=== PATIENT | male | born 1935 | race Caucasian/White ===

== ENCOUNTER 2016-11-04 19:42 | Emergency (ER) | payer MEDICARE, OTHER ==
--- NOTE | 2016-11-04 19:59 | ED.PDOC ---
History of Present Illness - General Stated Complaint: LEFT ARM NUMBNESS Time Seen by Provider: 11/04/16 19:49 Source: patient, RN notes reviewed, Vital Signs reviewed, family Exam Limitations: no limitations - History of Present Illness Initial Comments: Patient reports about 45 minutes to 1 hour ago he developed L arm numbness and weakness. No other symptoms. He had a similar episode last night that resolved after taking 2 aspirin. He did take an additional 2 aspirin today. Denies, OLIVA, visual changes, chest pain, SOB, nausea or lower extremity weakness. No similar episodes in the past. He does get bilateral arm numbness if he tilts his head back too far due to a neck issue but reports this numbness is different. Timing/Duration: 1 hour Severity: moderate Improving Factors: nothing Worsening Factors: nothing Associated Symptoms: denies symptoms Allergies/Adverse Reactions: Allergies NO KNOWN ALLERGY Allergy (Unverified 08/30/13 09:09) Home Medications: Ambulatory Orders Aspirin [Aspirin 81] 81 mg PO 08/30/13 Fluticasone/Salmeterol 250/50 [Advair Diskus] 08/30/13 Rosuvastatin Calcium [Crestor] 10 mg PO 08/30/13 Albuterol Inhaler [Ventolin Hfa Inhaler] 1 puff INH 11/04/16 Calcium 600 mg PO 11/04/16 Finasteride [Proscar] 5 mg PO 11/04/16 Magnesium [Magnesium 250 mg] 1 tab PO 11/04/16 Multiple Vitamins W/ Minerals [Ocuvite Preservision] 1 tab PO 11/04/16 Olmesartan Medoxomil [Benicar] 40 mg PO 11/04/16 Omeprazole [PriLOSEC Cap] 20 mg PO 11/04/16 amLODIPine BESYLATE [Norvasc] 10 mg PO 11/04/16 Review of Systems - Review of Systems Constitutional: States: no symptoms reported. Denies: malaise, weakness EENTM: States: no symptoms reported. Denies: blurred vision, double vision Respiratory: States: no symptoms reported. Denies: cough, short of breath Cardiology: States: no symptoms reported. Denies: chest pain Gastrointestinal/Abdominal: States: no symptoms reported. Denies: nausea, vomiting Genitourinary: States: no symptoms reported Musculoskeletal: States: no symptoms reported. Denies: back pain, joint pain, muscle pain, muscle stiffness, neck pain Skin: States: no symptoms reported Neurological: States: numbness, paresthesia, tingling, weakness. Denies: headache, pre-existing deficit, seizure, tremors Endocrine: States: no symptoms reported Hematologic/Lymphatic: States: no symptoms reported. Denies: blood clots, easy bleeding, easy bruising All other Systems: No Change from Baseline Past Medical History (General) - Patient Medical History Hx Seizures: No Hx Stroke: No Hx Dementia: No Hx Asthma: No Hx of COPD: Yes Hx Cardiac Disorders: Yes Hx Congestive Heart Failure: Yes Hx Pacemaker: No Hx Hypertension: Yes Hx Thyroid Disease: No Hx Diabetes: No Hx Gastroesophageal Reflux: Yes Hx Renal Disease: No Hx Cancer: No Hx of HIV: No Hx Hepatitis C: No Hx MRSA: No - Vaccination History Hx Tetanus, Diphtheria Vaccination: No Hx Influenza Vaccination: No Hx Pneumococcal Vaccination: No - Social History Hx Tobacco Use: No Hx Chewing Tobacco Use: No Hx Alcohol Use: No Hx Substance Use: No Hx Substance Use Treatment: No Hx Depression: No Hx Physical Abuse: No Hx Emotional Abuse: No Hx Suspected Abuse: No - Female History Patient : No Family Medical History - Family History Mother Family History: Unknown Physical Exam - Physical Exam General Appearance: Alert, Comfortable, No apparent distress, Well Developed, Well Groomed, Well Hydrated, Well Nourished Eye Exam: bilateral normal ENT Exam: hearing grossly normal, pharynx normal Neck: non-tender, full range of motion, supple, normal inspection Respiratory: chest non-tender, lungs clear, normal breath sounds, no respiratory distress, no accessory muscle use Cardiovascular/Chest: normal peripheral pulses, regular rate, rhythm, no edema, no gallop, no JVD, no murmur Peripheral Pulses: radial,right: 2+, radial,left: 0 - Patient reports there is no radial pulse due to prior surgery, dorsalis pedis,right: 2+, dorsalis pedis, left: 2+ Gastrointestinal/Abdominal: normal bowel sounds, non tender, soft, no organomegaly, no pulsatile mass Extremities Exam: non-tender, normal range of motion, no evidence of injury 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 Will repeat cardiac enzymes in 2 hours. If normal again will d/c home. Discussed possibility of TIA with patient and family. Patient is now symptom free. His exam was normal. 11/04/16 23:17 Second set of cardiac enzymes are normal. Most likely a TIA - Results/Orders Results/Orders: Laboratory Tests 11/04/16 11/04/16 19:49 22:50 WBC 6.5 RBC 5.57 Hgb 14.9 Hct 45.1 MCV 81.0 MCH 26.8 L MCHC 33.1 RDW 13.6 Plt Count 170 MPV 8.6 Absolute Neuts (auto) 3.40 Absolute Lymphs (auto) 2.20 Absolute Monos (auto) 0.60 Absolute Eos (auto) 0.20 Absolute Basos (auto) 0.00 Neutrophils % 52.5 Lymphocytes % 33.6 Monocytes % 9.9 H Eosinophils % 3.3 Basophils % 0.7 Sodium 139 Potassium 4.0 Chloride 105 Carbon Dioxide 28 Anion Gap 10.0 L BUN 34 H Creatinine 1.47 H BUN/Creatinine Ratio 23.1 H Random Glucose 109 H Serum Osmolality 285.7 Calcium 9.1 Total Bilirubin 0.3 AST 18 ALT 15 Alkaline Phosphatase 87 Creatine Kinase 84 77 CK-MB (CK-2) 3.1 2.7 CK-MB (CK-2) % Not Reportable Not Reportable Troponin I < 0.02 < 0.02 Serum Total Protein 6.2 L Albumin 3.7 Globulin 2.5 Albumin/Globulin Ratio 1.5 - EKG/XRAY/CT CT Ordered: Yes CT Interpretation Call Back: Yes - No acute stroke, 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 Departure - Departure Clinical Impression: Transient ischaemic attack (TIA), and cerebral infarction without residual deficits Time of Disposition: 23:16 Disposition: Discharge to Home or Self Care Condition: Good Instructions: DI for Transient Ischemic Attack Diet: resume usual diet Activity: increase activity as tolerated Home Medications: Ambulatory Orders Aspirin [Aspirin 81] 81 mg PO 08/30/13 Fluticasone/Salmeterol 250/50 [Advair Diskus] 08/30/13 Rosuvastatin Calcium [Crestor] 10 mg PO 08/30/13 Albuterol Inhaler [Ventolin Hfa Inhaler] 1 puff INH 11/04/16 Calcium 600 mg PO 11/04/16 Finasteride [Proscar] 5 mg PO 11/04/16 Magnesium [Magnesium 250 mg] 1 tab PO 11/04/16 Multiple Vitamins W/ Minerals [Ocuvite Preservision] 1 tab PO 11/04/16 Olmesartan Medoxomil [Benicar] 40 mg PO 11/04/16 Omeprazole [PriLOSEC Cap] 20 mg PO 11/04/16 amLODIPine BESYLATE [Norvasc] 10 mg PO 11/04/16 Additional Instructions: Follow up with your [employer] [facility] in 2-3 days
--- NOTE | 2016-11-04 20:14 | CT ---
EXAM DESCRIPTION: CT HEAD WITHOUT IV CONTRAST CLINICAL HISTORY: 81-year-old male with left arm numbness/ weakness. Rule out stroke. COMPARISON: None. TECHNIQUE: CT brain without contrast. FINDINGS: Multifocal regions of patchy hypo-attenuation are present in a subcortical and periventricular deep white matter distribution, nonspecific; however, most likely represent small vessel ischemic disease, age indeterminate. Right frontal focus of hypoattenuation compatible with encephalomalacia and gliosis. The ventricles and sulci are prominent suggesting underlying volume loss. The abraham-white matter differentiation is preserved. There is no mass effect,midline shift, intra- or extra-axial fluid collection/acute hemorrhage. The osseous structures are within normal limits. The paranasal sinuses reveal subcentimeter polyp or retention cyst present within the incompletely visualized maxillary sinuses otherwise the remaining maxillary sinuses and mastoid air cells are clear. IMPRESSION: 1. No acute intracranial abnormalities. Nonspecific white matter change most likely small vessel ischemic disease, age indeterminate. 2. CT is insensitive for early evaluation of acute stroke. If there is clinical concern for acute ischemia, an MRI may be considered. Electronically signed by: Nhi Stringer MD 11/04/2016 20:13
[2016-11-04] MEDS ORDERED: SODIUM CHLORIDE 0.9% 1000ML 1,000 ML IVS ONE (20:44)
[2016-11-04 23:24] VITALS: BP 132/66; TEMP 97.6; O2SAT 95
== END 2016-11-04 23:24 | disposition home or self-care (01) ==
LOC: ER 19:42
DX: G45.9 Transient cerebral ischemic attack, unspecified (principal); I11.0 Hypertensive heart disease with heart failure; I50.9 Heart failure, unspecified; K21.9 Gastro-esophageal reflux disease without esophagitis; Z79.899 Other long term (current) drug therapy; Z79.82 Long term (current) use of aspirin
CPT/HCPCS: 36415; 70450; 80053; 82550; 82553; 84484; 85025; 93005; J7030

== ENCOUNTER → 2016-11-18 | Outpatient (CLI) | payer MEDICARE, OTHER ==
--- NOTE | 2016-11-18 14:16 | US ---
Study: Bilateral Carotid Artery Doppler Sonogram. Indication: Transient cerebral ischemic attack, unspecified Technique: Multiplanar grayscale and Doppler sonographic images of the bilateral carotid arteries and vertebral arteries were obtained. Findings: The bilateral carotid arteries demonstrate moderate intimal thickening and calcified plaque. Analysis of duplex waveforms and flow velocities indicate no hemodynamically significant stenosis. The vertebral arteries demonstrate antegrade flow. Impression: 1. Moderate atherosclerosis of the bilateral carotid arteries without hemodynamically significant stenosis. Electronically signed by: Kyree Salinas MD 11/18/2016 14:14
== END ==
LOC: US 11:31
PROVIDERS: ATTEND Internal Medicine Interventional Cardiology
DX: G45.9 Transient cerebral ischemic attack, unspecified (principal)